=== PATIENT | male | born 1965 | race Caucasian/White ===

== ENCOUNTER → 2024-03-30 08:54 | Outpatient (BNVA) | payer MEDICAID, SELFPAY | PROVIDERS: PCP Nurse Practitioner; Visit Provider Surgery | DX: K42.9 Umbilical hernia without obstruction or gangrene (principal); K40.20 Bilateral inguinal hernia, without obstruction or gangrene, not specified as recurrent | CPT/HCPCS: 99204 ==

== ENCOUNTER 2024-04-11 05:42 | Day surgery (SDC) | payer MEDICAID, SELFPAY ==
--- NOTE | 2024-04-11 06:13 | PC.NURSE ---
Patient had chewing tobacco in his mouth upon arrival, surgeon and anesthesia dr notified. pt given the option to wait 8 hours or reschedule, he advised that he didnt feel like he could wait another 8 hours without caffeine and nicotine. He opted to reschedule
== END 2024-04-11 07:35 | disposition home or self-care (01) ==
PROVIDERS: PCP Nurse Practitioner; Visit Provider Surgery
PROC: 0WQF4ZZ Repair Abdominal Wall, Percutaneous Endoscopic Approach (ICD-10-PCS; principal; 2024-04-11 12:45)
PROC: (CPT 49650; 2024-04-11 12:45)
DX: Z53.9 Procedure and treatment not carried out, unspecified reason (principal)
CPT/HCPCS: J1100; J2405; J2704; J3010; J3490

== ENCOUNTER 2024-04-16 12:50 | Emergency (ER) | payer MEDICAID, SELFPAY ==
[2024-04-16 13:05] VITALS: BP 125/79; PULSE 63; RESP 18; TEMP 36.7; O2SAT 97; BMI 28.3
--- NOTE | 2024-04-16 13:33 | XRR_ITS ---
PROCEDURE INFORMATION: Exam: XR Abdomen Exam date and time: 04/16/2024 1:45 PM Age: 58 years old Clinical indication: Abdominal pain; PT has hernia, PT states he has surgery scheduled for Wednesday by Dr. Kaplan. PT was told if pain worsen or becomes red then to come into er. PT states pain has worsen and hernia is now red. PT states he was working on a car and was doing heavy lifting. ; Additional info: Abd pain TECHNIQUE: Imaging protocol: Radiologic exam of the abdomen. Views: Frontal supine view of the abdomen. 1 View. COMPARISON: No relevant prior studies available. FINDINGS: Gastrointestinal tract: Normal. No bowel dilation. Bones/joints: Unremarkable. XR/XR abdomen 1V* [id number] IMPRESSION: No acute findings.
[2024-04-16 13:38] VITALS: BP 122/84; PULSE 59; O2SAT 96
--- NOTE | 2024-04-16 13:44 | W.ED.ABDPA2 ---
HPI - Abdominal Pain General: Chief Complaint: Abdominal Pain Stated Complaint: abd pain, has hernia surgery scheduled for wednesday Time Seen by Provider: 04/16/24 13:28 History of Present Illness: 58-year-old male with a umbilical hernia and planned surgery in [address] Kaplan who presents emergency room with pain at the umbilical site. He was told if it started to hurt worse to come to the emergency room for evaluation. He does have some redness and some stomach contents bulging but it is easily reduced in the bed. He is had normal bowel movements. No nausea or vomiting. He can reduce the hernia at home if he lays down. He says he thinks he had worked on a couple of cars and this may have made symptoms worse. Related Data Home Medications ?Medication ?Instructions ?Recorded ?Confirmed aspirin 81 mg tablet,delayed 81 mg PO DAILY 03/30/24 04/16/24 release budesonide-formoterol HFA 160 2 puff inhalation BID 03/30/24 04/16/24 mcg-4.5 mcg/actuation aerosol inhaler (Symbicort) carvedilol 25 mg tablet 25 mg PO BID 03/30/24 04/16/24 cetirizine 10 mg tablet 10 mg PO DAILY 03/30/24 04/16/24 clopidogrel 75 mg tablet 75 mg PO DAILY 03/30/24 04/16/24 fluoxetine 20 mg tablet 20 mg PO BID 03/30/24 04/16/24 hydrochlorothiazide 25 mg tablet 25 mg PO DAILY 03/30/24 04/16/24 omeprazole 20 mg capsule,delayed 20 mg PO BID 03/30/24 04/16/24 release potassium chloride 8 mEq 8 meq PO DAILY 03/30/24 04/16/24 tablet,extended release rosuvastatin 40 mg tablet 40 mg PO DAILY 03/30/24 04/16/24 tamsulosin 0.4 mg capsule 0.4 mg PO DAILY 03/30/24 04/16/24 Allergies Allergy/AdvReac Type Severity Reaction Status Date / Time levofloxacin (From Levaquin) Allergy ALGY-Hives Verified 04/11/24 05:52 lisinopril Allergy ALGY-Difficulty Verified 04/11/24 05:51 Breathing Review of Systems Narrative: Constitutional symptoms: Negative except as documented in HPI. Skin symptoms: Negative except as documented in HPI. Eye symptoms: Negative except as documented in HPI. ENMT symptoms: Negative except as documented in HPI. Respiratory symptoms: Negative except as documented in HPI. Cardiovascular symptoms: Negative except as documented in HPI. Gastrointestinal symptoms: Negative except as documented in HPI. Genitourinary symptoms: Negative except as documented in HPI. Musculoskeletal symptoms: Negative except as documented in HPI. Neurologic symptoms: Negative except as documented in HPI. Psychiatric symptoms: Negative except as documented in HPI. Endocrine symptoms: Negative except as documented in HPI. PFSH ED PFSH: Social History Smoking and tobacco/nicotine status: never used tobacco/nicotine Physical Exam Narrative: EXAM NARRATIVE: General: Alert, no acute distress. Skin: Warm, dry. Head: Normocephalic, atraumatic. Neck: Supple, trachea midline. Eye: Extraocular movements are intact. Ears, nose, mouth and throat: mucosa moist. Cardiovascular: Regular, Normal peripheral perfusion. Respiratory: Lungs are clear to auscultation, respirations are non-labored, breath sounds are equal, Symmetrical chest wall expansion. Gastrointestinal: Soft, Nontender, Non distended. Umbilical hernia with some stomach contents protruding. This is easily reducible and lay the patient down. There is some mild erythema of the skin overlying. Musculoskeletal: Normal ROM, no deformity. Neurological: Alert and oriented, No focal neurological deficit observed. Psychiatric: Cooperative, appropriate mood & affect. Course Vital Signs: Vital signs: Vital Signs Temperature 98.1 F 04/16/24 13:05 Pulse Rate 63 04/16/24 13:05 Respiratory Rate 18 04/16/24 13:05 Blood Pressure 125/79 04/16/24 13:05 Pulse Oximetry 97 04/16/24 13:05 Oxygen Delivery Me thod Room Air 04/16/24 13:05 MDM - Abdominal Pain Medical Decision Making Lab Review: Laboratory results were reviewed and interpreted by myself the emergency room physician. No leukocytosis. No anemia. No renal failure. X-ray of the abdomen: No signs of obstruction. This was reviewed and interpreted by myself the emergency room physician. I also reviewed the radiology report. I reviewed the patient's medical record. Reexamination: I discussed with the patient that he needs to take it easy for the next day and stay on the couch and not push it so that the hernia does not get incarcerated. He expresses understanding. Consultation: I spoke with Dr. Kaplan who is the patient's general surgeon who is planning surgery on Wednesday. He agrees with the plan that is the patient is not incarcerated he should be able to go home. The erythema over the umbilicus is okay for now. Assessment and plan: Umbilical hernia - Discharged home - Discussed plan with patient. Answered any questions. - Evaluation and treatment of this problem were appropriate in the emergency setting. Lab Data 04/16/24 13:36 04/16/24 13:36 Labs/Radiology: Radiology Impressions Abdomen X-Ray 04/16/24 13:33 IMPRESSION: No acute findings. Laboratory Results WBC 7.46 10^3/uL (3.29-11.43) 04/16/24 13:36 RBC 4.99 10^6/uL (3.85-5.65) 04/16/24 13:36 Hgb 15.50 g/dL (11.27-16.99) 04/16/24 13:36 Hct 45.8 % (37-53) 04/16/24 13:36 MCV 91.8 fl (82-101) 04/16/24 13:36 MCH 31.1 pg (27-33) 04/16/24 13:36 MCHC 33.8 g/dL (30-55) 04/16/24 13:36 RDW 13.1 % (12.1-15.1) 04/16/24 13:36 Plt Count 227 10^3/cmm (157-399) 04/16/24 13:36 MPV 10.9 fL (7.4-10.4) H 04/16/24 13:36 Neut % (Auto) 65.3 % 04/16/24 13:36 Lymph % (Auto) 20.5 % 04/16/24 13:36 [place] % (Auto) 9.8 % 04/16/24 13:36 Eos % (Auto) 3.8 % 04/16/24 13:36 Baso % (Auto) 0.5 % 04/16/24 13:36 Neut # (Auto) 4.87 10^3/uL (1.8-7.7) 04/16/24 13:36 Lymph # (Auto) 1.5 10^3/uL (0.8-4.8) 04/16/24 13:36 [place] # (Auto) 0.7 10^3/uL (0.2-0.9) 04/16/24 13:36 Eos # (Auto) 0.3 10^3/uL (0.0-0.8) 04/16/24 13:36 Baso # (Auto) 0.0 10^3/uL (0.0-0.1) 04/16/24 13:36 Nucleated RBC % (auto) 0 % 04/16/24 13:36 Nucleated RBCs # 0.0 /100WBC 04/16/24 13:36 PT 12.50 SECONDS (12.1-14.9) 04/16/24 13:36 INR 0.87 (0.8-1.2) 04/16/24 13:36 Sodium 137 mmol/L (136-145) 04/16/24 13:36 Potassium 4.0 mmol/L (3.5-5.1) 04/16/24 13:36 Chloride 100 mmol/L (98-107) 04/16/24 13:36 Carbon Dioxide 25 mmol/L (22-29) 04/16/24 13:36 Anion Gap 16.0 (5-19) 04/16/24 13:36 BUN 10 mg/dL (8-23) 04/16/24 13:36 Creatinine 1.1 mg/dL (0.7-1.2) 04/16/24 13:36 GFR Calculation 68.3 mL/min (90-130) L 04/16/24 13:36 Glucose 91 mg/dL (65-115) 04/16/24 13:36 Calculated Osmolality 283 mOsm/kg (285-295) L 04/16/24 13:36 Calcium 9.8 mg/dL (8.5-10.5) 04/16/24 13:36 Total Bilirubin 0.4 mg/dL (0.15-1.2) 04/16/24 13:36 AST 18 U/L (0-40) 04/16/24 13:36 ALT 13 U/L (0-41) 04/16/24 13:36 Alkaline Phosphatase 99 U/L (40-130) 04/16/24 13:36 Total Protein 7.5 g/dL (6.6-8.7) 04/16/24 13:36 Albumin 4.3 g/dL (3.5-5.2) 04/16/24 13:36 Globulin 3.2 g/dL (1.3-4.6) 04/16/24 13:36 Lipase 23 U/L (13-60) 04/16/24 13:36 All radiology interpretation(s) finalized by discharge Discharge Plan Discharge Patient Disposition: Home Clinical Impression: Umbilical hernia Condition: Stable Prescriptions: No Action budesonide-formoterol [Symbicort] 160-4.5 mcg/actuation HFA aerosol inhaler 2 puff inhalation BID rosuvastatin 40 mg tablet 40 mg PO DAILY fluoxetine 20 mg tablet 20 mg PO BID tamsulosin 0.4 mg capsule 0.4 mg PO DAILY aspirin 81 mg tablet,delayed release (DR/EC) 81 mg PO DAILY carvedilol 25 mg tablet 25 mg PO BID omeprazole 20 mg capsule,delayed release(DR/EC) 20 mg PO BID hydrochlorothiazide 25 mg tablet 25 mg PO DAILY clopidogrel 75 mg tablet 75 mg PO DAILY potassium chloride 8 mEq tablet extended release 8 meq PO DAILY cetirizine 10 mg tablet 10 mg PO DAILY Discharge Orders: Discharge ED (Routine); Ordered 04/16/24 Ordered By: Jennifer Black Referrals: Chetan Adams FNP [Primary Care Provider] - Discharge Diet: Usual diet Discharge Activity: Increase activity as tolerated Patient Instructions: Umbilical Hernia (ED), Opioid Safety, Pain Management Activity Restrictions/Additional Instructions: Please keep appointment for surgery to repair your hernia. If the hernia becomes strangulated and you are unable to reduce it then return to the emergency room. Thank you for choosing [facility] for your healthcare needs today. Please realize this is an emergency room and that we are providing you with a medical screening exam and this may not be complete and all inclusive of all the testing and or work up that you may need to determine your ailment or severity of your illness. You have been screened and evaluated and felt safe for discharge. Health conditions do change or evolve sometimes and as such it is important that you follow up with your Primary Doctor to be re checked, 3-5 days is a general good time frame for follow up. You are always welcome to return to the ED for re assessment if your symptoms are worsening or you have new concerns Print Language: Serbian Coding Level of Care Code ED Plodding Operator for Lu Camilo
[2024-04-16 13:51] LABS: Basophils % 0.5 %; Eosinophils # 0.3 10^3/uL (0.0-0.8); Eosinophils % 3.8 %; Hematocrit 45.8 % (37-53); Lymphocytes # 1.5 10^3/uL (0.8-4.8); Lymphocytes % 20.5 %; Mean Corpuscular HGB Conc 33.8 g/dL (30-55); Mean Corpuscular Hemoglobin 31.1 pg (27-33); Mean Corpuscular Volume 91.8 fl (82-101); Mean Platelet Volume 10.9 fL (7.4-10.4); Monocytes # 0.7 10^3/uL (0.2-0.9); Monocytes % 9.8 %; Neutrophils # 4.87 10^3/uL (1.8-7.7); Neutrophils % 65.3 %; Nucleated Red Blood Cells % 0 %; Platelet Count 227 10^3/cmm (157-399); Red Blood Count 4.99 10^6/uL (3.85-5.65); Red Cell Distribution Width 13.1 % (12.1-15.1); White Blood Count 7.46 10^3/uL (3.29-11.43)
[2024-04-16 14:06] LABS: INR 0.87 (0.8-1.2)
[2024-04-16 14:09] LABS: Alanine Aminotransferase 13 U/L (0-41); Albumin Level 4.3 g/dL (3.5-5.2); Alkaline Phosphatase 99 U/L (40-130); Aspartate Amino Transferase 18 U/L (0-40); Blood Urea Nitrogen 10 mg/dL (8-23); Calcium 9.8 mg/dL (8.5-10.5); Carbon Dioxide 25 mmol/L (22-29); Chloride 100 mmol/L (98-107); Creatinine Clr Calc Pharmacy 66.1184; Globulin 3.2 g/dL (1.3-4.6); Glomerular Filtration Rate 68.3 mL/min (90-130); Glucose 91 mg/dL (65-115); Lipase 23 U/L (13-60); Osmolality Calculated 283 mOsm/kg (285-295); Sodium 137 mmol/L (136-145); Total Bilirubin 0.4 mg/dL (0.15-1.2); Total Protein 7.5 g/dL (6.6-8.7)
[2024-04-16 14:38] VITALS: BP 125/86; PULSE 58; O2SAT 94
[2024-04-16 15:00] VITALS: BP 114/72; PULSE 51; O2SAT 94
[2024-04-16 15:46] VITALS: BP 125/81; PULSE 58; O2SAT 98
== END 2024-04-16 15:46 | disposition home or self-care (01) ==
PROVIDERS: Emergency Medicine; Emergency Provider Emergency Medicine; PCP Nurse Practitioner
DX: K42.9 Umbilical hernia without obstruction or gangrene (principal); Z79.02 Long term (current) use of antithrombotics/antiplatelets; Z79.82 Long term (current) use of aspirin
CPT/HCPCS: 36415; 74018; 80053; 83690; 85025; 85610; 99284

== ENCOUNTER 2024-04-18 09:39 | Day surgery (SDC) | payer MEDICAID, SELFPAY ==
[2024-04-18] VITALS (11 sets, daily range): BP systolic 112–144; BP diastolic 63–91; PULSE 65–77; RESP 9–16; TEMP 36.4–36.6; O2SAT 90–100; BMI 28.5
--- NOTE | 2024-04-18 10:39 | W.PM.OPSUD ---
Surgery/Procedure H&P Update DATE OF PROCEDURE: April 18, 2024 DATE H&P PERFORMED: 03/30/24 H&P UPDATE INFORMATION: I have reviewed H&P completed within last 30 days, I have examined patient prior to procedure and No changes to prior documentation PLANNED PROCEDURE: Operation Date: 04/18/24 11:20 Proposed Procedures p Laparoscopic Umbilical Hernia Repair with mesh [id number], [id number], K40.20, K42.9(Not Applicable) - DO tono Cummings Laparoscopic Inguinal Hernia Repair with mesh(Bilateral) - Stefan Kaplan DO
--- NOTE | 2024-04-18 10:47 | ANES.PREANE2 ---
Pre-Anesthetic Assessment Height/Weight: Height 5 ft 4 in Weight 166 lb Temp Pulse Resp BP Pulse Ox O2 Del Method 97.6 F 68 14 112/76 96 Room Air 04/18/24 10:42 04/18/24 10:42 04/18/24 10:42 04/18/24 10:42 04/18/24 10:42 04/18/24 10:42 Preop Diagnosis: Umbilical and bilateral inguinal hernias Operation Date: 04/18/24 11:20 Proposed Procedures p Laparoscopic Umbilical Hernia Repair with mesh [id number], [id number], K40.20, K42.9(Not Applicable) - Stefan Kaplan DO s Laparoscopic Inguinal Hernia Repair with mesh(Bilateral) - Stefan Kaplan DO Was Beta Bo taken within 24 hours: Yes Was Clonidine taken within 24 hours: N/A Last intake: Intake Last Liquid Date 04/17/24 Last Liquid Time 23:30 Last Solid Date 04/17/24 Last Solid Time 23:30 Social No alcohol and No tobacco Chews tobacco Exam alert, oriented x 3, clear to auscultation bilaterally and regular rate & rhythm Airway Submandibular: within normal limits Cervical ROM: within normal limits Mallampati: Class III Comments: Comments: Poor dentition, multiple missing teeth. Denies any loose teeth Anesthetic Plan ASA status: 3 Anesthesia: General and Regional (specify below) Other: No prior issues with anesthesia NPO since yesterday evening Patient is super nervous this morning, request that we do not give him any vaccines while he is asleep History of hypertension on carvedilol and hydrochlorothiazide CAD with stents placed 2 years ago. On chronic Plavix. Last taken 04/06/2024 Labs reviewed from 04/16/2024 and acceptable for procedure Plan for general anesthesia with possible peripheral nerve block Medications/Allergies Home Medications ?Medication ?Instructions ?Recorded ?Confirmed ?Last Taken ?Type aspirin 81 mg tablet,delayed 81 mg PO DAILY 03/30/24 04/17/24 04/17/24 History release budesonide-formoterol HFA 160 2 puff inhalation BID 03/30/24 04/17/24 Unknown History mcg-4.5 mcg/actuation aerosol inhaler (Symbicort) carvedilol 25 mg tablet 25 mg PO BID 03/30/24 04/17/24 04/18/24 History cetirizine 10 mg tablet 10 mg PO DAILY 03/30/24 04/17/24 04/17/24 History clopidogrel 75 mg tablet 75 mg PO DAILY 03/30/24 04/17/24 04/10/24 History fluoxetine 20 mg tablet 20 mg PO BID 03/30/24 04/17/24 04/17/24 History hydrochlorothiazide 25 mg tablet 25 mg PO DAILY 03/30/24 04/17/24 04/17/24 History omeprazole 20 mg capsule,delayed 20 mg PO BID 03/30/24 04/17/24 04/17/24 History release potassium chloride 8 mEq 8 meq PO DAILY 03/30/24 04/17/24 04/17/24 History tablet,extended release rosuvastatin 40 mg tablet 40 mg PO DAILY 03/30/24 04/17/24 04/17/24 History tamsulosin 0.4 mg capsule 0.4 mg PO DAILY 03/30/24 04/17/24 04/17/24 History Allergies Allergy/AdvReac Type Severity Reaction Status Date / Time [facility] Allergy ALGY-Hives Verified 04/17/24 15:18 lisinopril Allergy ALGY-Difficulty Verified 04/17/24 15:18 Breathing PFSH Anesthesia Social History Smoking and tobacco/nicotine status: never used tobacco/nicotine Data Anesthesia Cardiac Studies: No Data to Display
[2024-04-18] MEDS: sodium chloride 0.9% 1,000 ML 30 ML IV (10:52)
[2024-04-18] MEDS: ceFAZolin 2,000 mg SDV 2000 MG IVP (11:30)
--- NOTE | 2024-04-18 11:52 | ANES.PROC ---
Anesthesia Procedures Procedure/Date: 04/18/24 Nerve Block ^: Nerve Block 1: Main Anesthesia: general anesthesia Time Out Performed: Yes Consent: requested by attending/covering physician and from patient Nerve block location: other (TAP bilateral) Anesthesia monitors applied: pulse oximetry, EKG, BP cuff and oxygen Nerve block position: supine Anesthetic Used: other (ropivicaine 0.2%) Amount of anesthesia used (mL): 60 Ultrasound used to: recognize landmarks Nerve Stimulator Used?: No Interscalene/Femoral BLK: other needle (pjunk 4inch) Injection: neg aspiration of heme Patient Tolerated Procedure: well Complications: none
[2024-04-18] MEDS: lidocaine-epi 2% PF 1:200,000 20 mL SDV 10 ML INJECTION (12:11)
--- NOTE | 2024-04-18 12:43 | P.OP_ITS ---
Operative Report Date of procedure: April 18, 2024 Surgeon: Stefan Kaplan DO Procedure: Pre-op diagnosis: Bilateral inguinal hernias Umbilical hernia Post-op diagnosis: Bilateral direct inguinal hernias Umbilical hernia Procedure done: Laparoscopic (TEPP) repair of left inguinal hernia with mesh Laparoscopic (TEPP) repair of right inguinal hernia with mesh Laparoscopic repair of umbilical hernia with mesh Implants: Left and right extra-large 3D max Bard meshes, 11 cm round Ventralight mesh Specimens removed/disposition: Hernia sac Surgeon: Stefan Kaplan DO Anesthesia: General and Local Estimated blood loss (mL): 5 Complications: None apparent Brief History: This is a very pleasant 58-year-old gentleman who presented my office with bilateral inguinal hernias and an umbilical hernia. Laparoscopic repair with mesh was indicated. The risk and benefits were explained and documented. Procedure: Patient was wheeled into the operative room and placed on the OR table in a supine position. Abdomen was inspected prepped and draped in usual sterile fashion. Time-out was performed and all present were in agreement. A 15 blade scalpel was used to make 1.2 centimeter incision infraumbilically. Combination of sharp and blunt dissection was performed down to the anterior rectus sheath which was opened sharply. The dissecting balloon was then inserted into the space of Retzius and blown up. We put the camera into the port and identified that we were in the correct space. I then placed 2 5 millimeter trocars suprapubically in the midline. I then used endokitners to bluntly dissect in the space of Retzius out laterally. A direct inguinal hernia was identified on the right. Blunt dissection was performed to dissect down the hernia sac until the vas deferens dove medially. An extra-large 3D max Bard right inguinal mesh was then placed into the space of Retzius. The mesh was unrolled and tacked once medially at the pubic bone. The mesh laid out nicely over the spermatic cord. A direct inguinal hernia was identified on the left. Blunt dissection was performed to dissect down the hernia sac until the vas deferens dove medially. An extra-large 3D max Bard left inguinal mesh was then placed into the space of Retzius. The mesh was unrolled and tacked once medially at the pubic bone. The mesh laid out nicely over the spermatic cord. Hernia sacs were held underneath the meshes as the insufflation was released. Attention was then brought to the umbilical hernia A 15 blade scalp was used to make a 5 millimeter incision left upper quadrant. A Veress needle was placed into the incision and intra-abdominal insufflation was brought to 15 millimeters of mercury. A 12 millimeter trocar was placed into the left lower quadrant. The energy but device was then used to cut out the hernia sac. The hernia defect measured 1.5 cm in diameter. An 11 cm round Ventralight mesh was placed into the abdomen and brought up through the umbilicus using an the Xavi- Jimmie. The mesh was then tacked in place in a double crown fashion. The skeleton of the mesh was removed via the left lower quadrant. The hernia sac was then removed from the abdomen via the left lower quadrant. The left lower quadrant port site was closed with an 0 Vicryl suture in a Xavi-Jimmie in a [id number] fashion. Incisions were closed with 4 O Vicryl in a subcuticular interrupted fashion. Skin glue was applied. A dressing that included cotton balls and a Tegaderm was placed over the umbilicus. Patient tolerated the procedure well.
--- NOTE | 2024-04-18 13:50 | ANE.PACU2 ---
Inpatient post-anesthesia follow up: Airway intact: Yes Vital signs: Temperature 97.9 F Pulse Rate 72 Respiratory Rate 16 Blood Pressure 118/66 Pulse Oximetry 97 Oxygen Delivery Me thod Room Air Oxygen Flow Rate 8 Fraction of Inspir ed Oxygen Hydration adequate: Yes Nausea and vomiting: No Pain level: 2 Mental status: Baseline
[2024-04-18] MEDS: HYDROcodone-acetaminophen 7.5-325 mg Tablet 1 TAB PO (14:18)
== END 2024-04-18 15:00 | disposition home or self-care (01) ==
PROVIDERS: PCP Nurse Practitioner; Visit Provider Surgery
PROC: 0WQF4ZZ Repair Abdominal Wall, Percutaneous Endoscopic Approach (ICD-10-PCS; CPT 49650; principal; 2024-04-18 11:20)
PROC: (CPT 49650; 2024-04-18 11:20)
DX: K40.20 Bilateral inguinal hernia, without obstruction or gangrene, not specified as recurrent (principal); K42.9 Umbilical hernia without obstruction or gangrene; K08.409 Partial loss of teeth, unspecified cause, unspecified class; I10 Essential (primary) hypertension; Z79.899 Other long term (current) drug therapy; I25.10 Atherosclerotic heart disease of native coronary artery without angina pectoris; Z95.5 Presence of coronary angioplasty implant and graft; Z79.02 Long term (current) use of antithrombotics/antiplatelets; Z79.82 Long term (current) use of aspirin; Z88.8 Allergy status to other drugs, medicaments and biological substances
CPT/HCPCS: 49650; 49591; 51702; 88302; C1781; J0131; J0690; J1100; J2250; J2405; J2704; J3010; J3490; J7030

== ENCOUNTER → 2024-05-08 10:05 | Outpatient (BNVA) | payer MEDICAID, SELFPAY | PROVIDERS: PCP Nurse Practitioner; Visit Provider Student in an Organized Health Care Education/Training Program | DX: Z98.890 Other specified postprocedural states (principal); K42.9 Umbilical hernia without obstruction or gangrene; Z87.19 Personal history of other diseases of the digestive system | CPT/HCPCS: 99024 ==

== ENCOUNTER → 2024-07-13 13:49 | Outpatient (BNVA) | payer MEDICAID, SELFPAY | PROVIDERS: PCP Nurse Practitioner; Visit Provider Student in an Organized Health Care Education/Training Program | DX: K42.9 Umbilical hernia without obstruction or gangrene (principal) | CPT/HCPCS: 99213 ==